=== PATIENT | female | born 1945 | race Caucasian/White ===

== ENCOUNTER → 2020-08-11 15:56 | Outpatient (ROUT) | payer OTHER, SELFPAY ==
[2020-08-11 16:07] LABS: Add Manual Diff / Slide Review NO; Basophils Absolute Auto 0 /uL (0-100); Basophils Percent Auto 0.2 % (0-2); Eosinophils Absolute Auto 100 /uL (0-450); Eosinophils Percent Auto 1.3 % (2-4); Hematocrit 40.9 % (36-46); Hemoglobin 13.9 g/dL (12.0-16.0); Lymphocytes Absolute Auto 800 /uL (1100-4500); Mean Corpuscular Hemoglobin 31.3 PG (26-34); Mean Corpuscular Volume 92.2 fL (80-100); Monocytes Absolute Auto 200 /uL (0-900); Neutrophils Absolute Auto 3900 /uL (1500-7000); Neutrophils Percent Auto 78.5 % (50-75); Platelet Count 142 X10^3/uL (150-400); Red Blood Cell Count 4.43 X10^6/uL (4.0-5.2); White Blood Cell Count 4.9 X10^3/uL (4.5-11.0)
[2020-08-11 16:22] LABS: Alanine Aminotransferase 24 IU/L (<35); Albumin 3.8 g/dL (3.5-5.0); Albumin Globulin Ratio 1.4 (1.0-2.8); Alkaline Phosphatase 88 U/L (38-126); Aspartate Aminotransferase 32 IU/L (14-36); BUN Creatinine Ratio 18.4 (6-22); Bilirubin Total 0.5 mg/dL (0.2-1.3); Blood Urea Nitrogen 14 mg/dL (7-17); Calcium 9.3 mg/dL (8.4-10.2); Carbon Dioxide 30 mmol/L (22-32); Chloride 103 mmol/L (98-107); Estimated Glomerular Filt Rate > 60.0 mL/min (>60); Globulin 2.8 g/dL (1.7-4.1); Glucose 133 mg/dL (80-110); HEMOLYSIS < 15 (0-50); Potassium 4.5 mmol/L (3.4-5.1); Sodium 138 mmol/L (137-145); Total Protein 6.6 g/dL (6.3-8.2)
== END ==
PROVIDERS: Family Provider Internal Medicine; PCP Internal Medicine; Visit Provider Internal Medicine Infectious Disease
DX: A41.52 Sepsis due to Pseudomonas (principal); N39.0 Urinary tract infection, site not specified
CPT/HCPCS: 80053; 85025

== ENCOUNTER → 2023-03-10 10:22 | Outpatient (CLI) | payer OTHER, SELFPAY ==
[2023-03-10 12:29] LABS: Influenza A - CEPHEID Flu A NEGATIVE (NEGATIVE); Influenza B - CEPHEID Flu B NEGATIVE (NEGATIVE); Respiratory Syncytial Virus Negative (Negative)
[2023-03-10 12:51] LABS: COVID-19 CEPHEID 4-PLEX PCR Negative (Negative)
== END ==
PROVIDERS: Family Provider Internal Medicine; PCP Nurse Practitioner Family; Visit Provider Nurse Practitioner Family
DX: J02.9 Acute pharyngitis, unspecified (principal)
CPT/HCPCS: 0241U; 87070

== ENCOUNTER → 2023-07-12 08:37 | Outpatient (CLI) | payer OTHER, SELFPAY ==
--- NOTE | 2023-07-12 | DI.CT.S_ITS ---
PROCEDURE: CT CHEST WO CON INDICATIONS: LUNG NODULE TECHNIQUE: Noncontrast 5 mm thick sections acquired from the pulmonary apices to the posterior costophrenic angles. 1 mm lung window, 5 mm thick coronal and sagittal and 7 mm axial MIP reformats were then acquired. For radiation dose reduction, the following was used: automated exposure control, adjustment of mA and/or kV according to patient size. COMPARISON: [facility], MR, MR ABDOMEN LIVER PROTOCOL, 06/28/2023, 8:37. [facility], MR, MR ABDOMEN WITH/WITHOUT CONTRAST, 01/08/2023, 9:26. [facility], CT, CT CHEST WITHOUT CONTRAST, 02/05/2023, 9:22. FINDINGS: Image quality: Excellent. Lungs and pleura: Numerous bilateral pulmonary nodules have developed consistent with widespread pulmonary metastatic disease. 1 of the largest of these nodules, in the medial right lung base, on image 228/3, measures 1.4 cm. Again, there are numerous pulmonary metastatic lesions. No acute air space opacities. No pleural effusions or pneumothorax. Central and peripheral airways are patent and normal in caliber. Mediastinum: Heart size is normal. No pericardial effusion. Relatively dense LAD calcifications. No mediastinal adenopathy by size criteria. Thoracic aorta and central pulmonary arteries are normal in size. Esophagus is normal in caliber. No hiatal hernia. Bones and chest wall: No suspicious bony lesions. No vertebral body compression fractures. No axillary or supraclavicular adenopathy by size criteria. Thyroid gland is unremarkable . Abdomen: Cirrhosis, known segment 6 hepatocellular carcinoma. Enlarged spleen. IMPRESSION: 1. Cirrhosis, known hepatocellular carcinoma. 2. Interval development of widespread pulmonary metastatic disease. Dictated by: Chucky Avalos M.D. on 07/12/2023 at 11:20 Approved by: Chucky Avalos M.D. on 07/12/2023 at 11:34
== END ==
PROVIDERS: Family Provider Internal Medicine; PCP Nurse Practitioner Family; Referring Provider Radiology Vascular & Interventional Radiology; Visit Provider Radiology Vascular & Interventional Radiology
DX: C22.0 Liver cell carcinoma (principal); R91.1 Solitary pulmonary nodule; K74.60 Unspecified cirrhosis of liver
CPT/HCPCS: 71250

== ENCOUNTER → 2025-04-27 18:05 | Outpatient (CLI) | payer MEDICARE, SELFPAY | PROVIDERS: PCP Nurse Practitioner Family; Visit Provider Nurse Practitioner Family | DX: K65.1 Peritoneal abscess (principal) | CPT/HCPCS: 87070; 87075; 87205 ==